=== PATIENT | female | born 1950 | race Caucasian/White ===

== ENCOUNTER → 2018-06-25 10:06 | Outpatient (CLI) | payer MEDICARE, BC, SELFPAY ==
--- NOTE | 2018-06-25 10:14 | US_ITS ---
US Arterial Ankle Brachial Ind History: Claudication leg pain ORDERING PHYSICIAN: Patrick Trinidad MD PATIENT AGE: 68 years TECHNIQUE: Segmental pressures obtained of both right and left leg. These are compared to brachial blood pressure to yield index at each level sampled including summary NOELLE. The data sheets from the procedure are available in PACS FINDINGS Rest study only performed today No prior studies available for comparison. Blood pressures reported are in millimeters mercury. RIGHT LEG NOELLE = 1.2. RIGHT LEG TBI=1.0 Brachial BP: 142 Thigh BP: 181 Calf BP: 181 Ankle PT: 177 Ankle DP : 165 Digit =139 LEFT LEG NOELLE = 1.2 LEFT LEG TBI= .9 Brachial BPD: 143 Thigh BP: 172 Calf BP: 182 Ankle PT:178 Ankle DP: 151 Digit = 129 Pulses and waveforms: Normal IMPRESSION: The ABIs as reported above are within normal limits. Waveforms and pulses are also unremarkable.
== END ==
PROVIDERS: PCP Family Medicine; Visit Provider Family Medicine
DX: R09.89 Other specified symptoms and signs involving the circulatory and respiratory systems (principal); R20.2 Paresthesia of skin
CPT/HCPCS: 93922

== ENCOUNTER → 2018-10-13 15:19 | Outpatient (CLI) | payer MEDICARE, BC, SELFPAY ==
--- NOTE | 2018-10-13 15:28 | XR_ITS ---
EXAM: XR lumbar spine min 4V HISTORY: ITS.REASON: LOW BACK PAIN,SCIATICA ORDERING PHYSICIAN: Patrick Trinidad MD PATIENT AGE: 68 years COMPARISON: None FINDINGS: Normal alignment. No fracture or dislocation. There is degenerative disc disease from T10 to S1 most severe at the L4-L5 level and in the lower thoracic spine. No acute fracture or dislocation. No lytic or blastic change. There are facet arthritic changes at L4-L5 and L5-S1. There is sclerosis of the inferior aspect of the SI joint on the left. There are osteoarthritic changes of the right hip. Left hip prosthesis is partially visualized. IMPRESSION: 1. Lumbar spondylosis with degenerative disc disease and facet arthritic change. 2. Sclerosis of left SI joint inferiorly. 3. Osteoarthritis of the right hip
== END ==
PROVIDERS: PCP Family Medicine; Visit Provider Family Medicine
DX: M54.5 Low back pain (principal); M54.30 Sciatica, unspecified side
CPT/HCPCS: 72110

== ENCOUNTER → 2019-10-30 08:31 | Outpatient (CLI) | payer MEDICARE, BC, SELFPAY ==
--- NOTE | 2019-10-30 08:35 | XR_ITS ---
PROCEDURE: XR DEXA AXIAL SKELETON CLINICAL INDICATION: POST MENOPAUSAL COMPARISON: No exams were available for comparison FINDINGS: Lumbar spine (L1 through L4), BMD 1.191, T-score 1.3 Right hip (neck), BMD 0.760, T-score -0.8. Right hip (Total), BMD 0.801, T-score -1.2. Forearm (distal 1/3), BMD 0.604, T-score -1.5. IMPRESSION: Osteopenia. Dictated by: Garry Rangel 10/30/2019 11:23 Electronically signed by Garry Rangel in [place] 10/30/2019 11:23
== END ==
PROVIDERS: PCP Family Medicine; Visit Provider Family Medicine
DX: Z13.820 Encounter for screening for osteoporosis (principal); Z78.0 Asymptomatic menopausal state
CPT/HCPCS: 77080

== ENCOUNTER → 2019-10-31 12:14 | Outpatient (CLI) | payer MEDICARE, BC, SELFPAY | PROVIDERS: Visit Provider Family Medicine | DX: R82.90 Unspecified abnormal findings in urine (principal) | CPT/HCPCS: 87086 ==

== ENCOUNTER → 2021-07-18 11:05 | Outpatient (POV) | payer MEDICARE, BC, SELFPAY | PROVIDERS: Visit Provider Dermatology | DX: Z00.00 Encounter for general adult medical examination without abnormal findings (principal) ==

== ENCOUNTER 2021-10-02 20:18 | Emergency (ER) | payer MEDICARE, BC, SELFPAY ==
[2021-10-02 20:20] VITALS: BP 190/95; PULSE 87; RESP 16; TEMP 37.2; O2SAT 97; BMI 34.7
[2021-10-02 20:43] VITALS: BP 172/98
--- NOTE | 2021-10-02 21:01 | HMH.EDALLER ---
ED Disposition Clinical Impression: Angioedema Qualifiers: Encounter type: initial encounter Qualified Code(s): T78.3XXA - Angioneurotic edema, initial encounter Disposition: Home, Self-Care Condition on Discharge: Good Instructions: DI for Angioedema Additional Instructions: call pcp for follow up Referrals: Patrick Trinidad MD [Primary Care Provider] - - Critical Care Critical Care Time: No Attestation: On 10/02/21, the high probability of a clinically significant, sudden or life threatening deterioration of the following system(s) required my full and direct attention, intervention and personal management. The time I documented below is in addition to time spent performing reported procedures but includes the following listed in this critical care notation. Medical Decision Making - Medical Records Medical records reviewed: Yes: I reviewed the patient's medical records. - Ravi Inquiry Pt receiving controlled substance: No Vital Signs: 10/02/21 20:20 10/02/21 20:43 Temperature 98.9 F Temperature Source Oral Pulse Rate [Left] 87 Respiratory Rate 16 Blood Pressure 172/98 H Blood Pressure [Right Arm] 190/95 H Blood Pressure Mean [Right Arm] 126 Blood Pressure Source Manual Cuff/ Auscultation Blood Pressure Source [Right Arm] Automatic Cuff Blood Pressure Position Sitting 02 Sat by Pulse Oximetry 97 Oxygen Delivery Method Room Air - Lab Data Lab results reviewed: Yes: I reviewed the patient's lab results. Lab Results 10/02/21 21:07: WBC 9.5, RBC 4.48, Hgb 13.8, Hct 41.7, MCV 93.1, MCH 30.8, MCHC 33.1, RDW 13.1, Plt Count 394, MPV 8.5, Neut % (Auto) 56.4, Lymph % (Auto) 33.0, [place] % (Auto) 4.6, Eos % (Auto) 5.0, Baso % (Auto) 1.0, Neut # (Auto) 5.4, Lymph # (Auto) 3.2, [place] # (Auto) 0.4, Eos # (Auto) 0.5 H, Baso # (Auto) 0.1 10/02/21 21:07: Sodium 140, Potassium 3.8, Chloride 99, Carbon Dioxide 33 H, Anion Gap 11.8, BUN 14, Creatinine 0.60, Estimated Creat Clear 77, Estimated GFR 98, Est GFR ( Amer) 119, Glucose 127 H, Calcium 10.2 10/02/21 21:07: Total Bilirubin 0.2, Direct Bilirubin 0.1, Conjugated Bilirubin 0.0, Indirect Bilirubin 0.1, Unconjugated Bilirubin 0.2, AST 46 H, ALT 33, Alkaline Phosphatase 77, Total Protein 8.0, Albumin 4.4 Result diagrams: 10/02/21 21:07 10/02/21 21:07 Orders (Tests/Meds): ED MEDICATIONS Discontinued Medications Generic Name Dose Route Start Last Admin Trade Name Jayme PRN Reason Stop Dose Admin Amlodipine Besylate 5 mg 10/02/21 21:48 Amlodipine 5mg Tablet PO 10/02/21 21:49 ONCE ONE Diphenhydramine HCl 25 mg 10/02/21 21:09 10/02/21 21:11 Diphenhydramine 50mg/Ml Vial IV 10/02/21 21:10 25 mg ONCE ONE Administration Famotidine 20 mg 10/02/21 21:09 10/02/21 21:11 Famotidine 20mg/2ml Vial IV 10/02/21 21:10 20 mg ONCE ONE Administration Methylprednisolone Sodium Succinate 125 mg 10/02/21 21:09 10/02/21 21:11 Methylprednisolone Sod Succ 125mg Vial IV 10/02/21 21:10 125 mg ONCE ONE Administration ORDERS Category Date Time Status ESR [Erythrocyte Sedimentation Rate] Stat Lab 10/02/21 21:07 Received - Physician Consults Physician Consulted: kiana Reason -: Pt condition Allergic React/Insect Bite HPI - General Chief complaint: Dental/Oral Stated complaint: tongue ,lips snd going down int throat Time Seen by Provider: 10/02/21 21:01 Mode of Arrival - ED Triage: Family Vehicle Source of Information: Patient, Medical Record Limitations: No Limitations - History of Present Illness HPI narrative: since this am has swollen feeling and tingling to tongue and upper lips - no diff breathing and no fever or other c/o- no speech or visual sx and no motor sx - MD complaint: allergic reaction Onset (ago): hour(s) Symptoms: lip swelling, tongue swelling Treatment prior to arrival: none Allergies/Adverse Reactions: Allergies Allergy/AdvReac Type Severity Reaction Status Date / Coy
[2021-10-02 21:22] LABS: Basophils # 0.1 K/mm3 (0-0.2); Eosinophils # 0.5 K/mm3 (0.0-0.4); Hematocrit 41.7 % (37.0-47.0); Hemoglobin 13.8 g/dL (12.2-16.2); Lymphocytes # 3.2 K/mm3 (0.7-4.5); Mean Corpuscular HGB Conc 33.1 g/dL (31.8-35.4); Mean Corpuscular Hemoglobin 30.8 pg (27.0-31.2); Mean Corpuscular Volume 93.1 fl (81-99); Mean Platelet Volume 8.5 fl (7.4-10.4); Monocytes # 0.4 K/mm3 (0.1-1.0); Monocytes % 4.6 % (1.7-9.3); Neutrophils # 5.4 K/mm3 (1.8-7.8); Neutrophils % 56.4 % (37.0-80.0); Platelet Count 394 K/mm3 (142-424); Red Blood Count 4.48 M/mm3 (4.20-5.40); Red Cell Distribution Width 13.1 % (11.5-17.5); White Blood Count 9.5 K/mm3 (4.8-10.8)
[2021-10-02 21:25] LABS: Chloride 99 mmol/L (98-107)
[2021-10-02 21:26] LABS: Potassium 3.8 mmoL/L (3.5-5.1); Sodium 140 mmol/L (136-145)
[2021-10-02 21:28] LABS: Alanine Aminotransferase 33 U/L (12-78); Albumin Level 4.4 g/dl (3.5-5.0); Alkaline Phosphatase 77 U/L (38-126); Aspartate Amino Transferase 46 U/L (14-36); Bilirubin,Direct 0.1 mg/dl (0.0-0.4); Bilirubin,Indirect 0.1 mg/dL (0.0-0.9); Bilirubin,Total 0.2 mg/dl (0.2-1.3); Bilirubin,Unconjugated 0.2 mg/dL (0.0-1.1)
[2021-10-02 21:29] LABS: Anion Gap 11.8 mEq/L (5-15); Blood Urea Nitrogen 14 mg/dl (7-17); Calcium 10.2 mg/dl (8.4-10.2); Carbon Dioxide 33 mmol/L (22.0-30.0); Creatinine Clearance Estimated 77 mL/min (50-200); Estimated Glomerular Filt Rate 98 ml/min (>60); GFR (African American) 119 ML/MIN (>60); Glucose 127 mg/dl (74-100)
[2021-10-02 21:55] LABS: Erythrocyte Sedimentation Rate 31 mm/hr (0-30)
[2021-10-02 22:16] VITALS: BP 163/83; PULSE 77; RESP 18; TEMP 36.7; O2SAT 98
== END 2021-10-02 22:18 | disposition home or self-care (01) ==
PROVIDERS: Emergency Provider Emergency Medicine; PCP Family Medicine
DX: T78.3XXA Angioneurotic edema, initial encounter (principal)
CPT/HCPCS: 80048; 80076; 85025; 85651; 96374; 96375; 99282

== ENCOUNTER → 2021-11-14 12:05 | Outpatient (CLI) | payer MEDICARE, BC, SELFPAY ==
[2021-11-14 13:36] LABS: Adenovirus,PCR Not Detected (NotDetected); Bordetella Pertussis Not Detected (NotDetected); Chlamydophila Pneumoniae, PCR Not Detected (NotDetected); Coronavirus 19, PCR Not Detected (NotDetected); Coronavirus 229E Not Detected (NotDetected); Coronavirus NL63 Not Detected (NotDetected); Coronavirus OC43 Not Detected (NotDetected); Coronovirus HKU1,PCR Not Detected (NotDetected); Human Metapneumovirus Not Detected (NotDetected); Influenza A, PCR Not Detected (NotDetected); Influenza AH1, 2009 Not Detected (NotDetected); Influenza AH1, PCR Not Detected (NotDetected); Influenza AH3,PCR Not Detected (NotDetected); Influenza B, PCR Not Detected (NotDetected); Mycoplasma Pneumoniae, PCR Not Detected (NotDetected); Parainfluenza 1, PCR Not Detected (NotDetected); Parainfluenza 2, PCR Not Detected (NotDetected); Parainfluenza 3, PCR Not Detected (NotDetected); Parainfluenza 4, PCR Not Detected (NotDetected); Respiratory Syncytial Virus Not Detected (NotDetected); Rhinovirus/Enterovirus Not Detected (NotDetected)
[2021-11-14 14:01] LABS: Basophils # 0.2 K/mm3 (0-0.2); Basophils % 2.4 % (0.1-2.0); Eosinophils # 0.4 K/mm3 (0.0-0.4); Eosinophils % 5.4 % (0.1-12.0); Hematocrit 43.1 % (37.0-47.0); Hemoglobin 14.1 g/dL (12.2-16.2); Lymphocytes # 2.2 K/mm3 (0.7-4.5); Lymphocytes % 26.6 % (10-50); Mean Corpuscular HGB Conc 32.7 g/dL (31.8-35.4); Mean Corpuscular Hemoglobin 30.8 pg (27.0-31.2); Mean Corpuscular Volume 94.4 fl (81-99); Mean Platelet Volume 8.5 fl (7.4-10.4); Monocytes # 0.4 K/mm3 (0.1-1.0); Monocytes % 5.2 % (1.7-9.3); Neutrophils # 4.9 K/mm3 (1.8-7.8); Neutrophils % 60.4 % (37.0-80.0); Platelet Count 397 K/mm3 (142-424); Red Blood Count 4.57 M/mm3 (4.20-5.40); Red Cell Distribution Width 13.1 % (11.5-17.5); White Blood Count 8.1 K/mm3 (4.8-10.8)
== END ==
PROVIDERS: PCP Family Medicine; Visit Provider Family Medicine
DX: Z20.822 Contact with and (suspected) exposure to COVID-19 (principal)
CPT/HCPCS: 36415; 85025; 87581; 87632; 87798; C9803; U0003; U0005

== ENCOUNTER → 2022-02-13 11:43 | Outpatient (CLI) | payer MEDICARE, BC, SELFPAY | PROVIDERS: Visit Provider Internal Medicine Gastroenterology | DX: Z01.812 Encounter for preprocedural laboratory examination (principal); Z11.52 Encounter for screening for COVID-19; Z12.11 Encounter for screening for malignant neoplasm of colon | CPT/HCPCS: C9803; U0003; U0005 ==

== ENCOUNTER 2022-02-15 09:27 | Day surgery (SDC) | payer MEDICARE, BC, SELFPAY ==
[2022-02-08 10:23] VITALS: BMI 33.9
[2022-02-15] VITALS (7 sets, daily range): BP systolic 125–150; BP diastolic 67–78; PULSE 63–85; RESP 16–18; TEMP 36.3–37.1; O2SAT 95–98
--- NOTE | 2022-02-15 10:49 | P.PN_ITS ---
[facility] Anesthesia Checklist - Patient Identification Patient Identification: Arm Band - Structural Data Admitted From: Home Planned Operative Procedure/s: colonoscopy Consent for Planned Operative Procedure(s) Verified: Yes Verified Documents: Surgical Consent, History and Physical - NPO Status Verified Time NPO: 00:00 - Additional verifications Anesthesia Reactions: No - Airway Assessment C-Spine Mobility Assessed: Yes (mp2) TMJ Mobility Assessed: Yes Dentition: Good Dentition - Neurological Assessment Level of Consciousness: Awake, Alert - Anesthesia Plan Anesthesia Risk discussed: Yes Anesthesia Plan: Verified ASA Class: II Anesthesia Type: MAC [facility] History I have reviewed the patient's past medical history: Yes Medical History: Reports:: Cancer (skin), Hyperlipidemia, Hypertension Denies:: Diabetes Mellitus Type 1, Diabetes Mellitus Type 2, Internal Pacemaker, MRSA, Seizures *Have you ever received a pneumonia vaccine?: No *Have you received a flu vaccine this season?: Yes Anesthesia experience/problems:: nac Laterality Cases: Left: Total Hip Replacement, Bilateral: Carpal Tunnel Release, Total Knee Replacement Other Surgeries: Yes: Colonoscopy, Hysterectomy-Total. No: Pacemaker Amputation: No Fractures: No - *Social History Last grade of school completed: Some college Smoking Status: Never smoker Alcohol Intake: never Substance Use Type: denies use *Occupational Status:: retired Housing: house Household Members: spouse *Travel in the last 8 weeks: None Family Hx:: No significant family history
--- NOTE | 2022-02-15 11:12 | HMH.SCOPE ---
- Procedure: Date: 02/15/22 Patient Date of :: 1950 Procedure Performed:: Colonoscopy with biopsy & snare polypectomy Indications:: History of polyps Performing Provider:: Carlos Abbott MD Referring Provider:: Patrick Trinidad MD Sedation:: Propofol Procedure:: After placing the patient in the left lateral decubitus position, the colonoscopy was gently inserted into the rectum and under direct visualization advanced to the cecum which was identified by transillumination in the right lower quadrant, identification of the ileocecal valve, appendiceal orifice, and cecal strap. Color, texture, mucosa, and anatomy of the colon were carefully examined with the scope. Findings:: Anal canal: normal Rectum: normal Sigmoid colon: Small 0.5 cm polyp removed with forceps Descending colon: normal without polyps or inflammatory changes Splenic flexure: normal Transverse colon: 1 cm polyp removed with hot snare Hepatic flexure: normal Ascending colon: normal without polyps or inflammatory changes Cecum: normal Terminal ileum: not visualized Impression: Sigmoid polyp Transverse polyp Specimens:: Polyps x 2 Recommendations:: Repeat examination recommended in THREE years or so, sooner if clinically indicated. Complications:: None Estimated blood obtained (mL): 0
== END 2022-02-15 12:15 | disposition home or self-care (01) ==
LOC: OUTP 09:28
PROVIDERS: PCP Family Medicine; Visit Provider Internal Medicine Gastroenterology
PROC: 0DJD8ZZ Inspection of Lower Intestinal Tract, Via Natural or Artificial Opening Endoscopic (ICD-10-PCS; CPT 45378; principal; 2022-02-15 10:30)
DX: Z12.11 Encounter for screening for malignant neoplasm of colon (principal); K63.5 Polyp of colon; E78.5 Hyperlipidemia, unspecified; I10 Essential (primary) hypertension; Z85.828 Personal history of other malignant neoplasm of skin; Z86.010 Personal history of colon polyps
CPT/HCPCS: 45380; 45385; 88305

== ENCOUNTER 2022-05-13 14:16 | Emergency (ER) | payer MEDICARE, BC, SELFPAY ==
[2022-05-13 14:25] VITALS: BP 141/79; PULSE 86; RESP 19; TEMP 36.8; O2SAT 97; BMI 34.9
--- NOTE | 2022-05-13 14:45 | HMH.EDUTC ---
[facility] [place] Disposition Clinical Impression: Shingles rash Qualifiers: Herpes zoster complications: without complications Qualified Code(s): B02.9 - Zoster without complications Disposition: Home, Self-Care Condition on Discharge: Good Instructions: DI for Shingles Additional Instructions: follow up with pcp if worsen or no improvement return or be seen in ed Prescriptions: Acyclovir 400 mg PO TID #5 tab Transmission Status: Pending to [facility] predniSONE [Prednisone 20mg Tab] 20 mg PO BID #10 tab Transmission Status: Pending to [facility] Referrals: Patrick Trinidad MD [Primary Care Provider] - Time of Disposition: 14:55 Medical Decision Making - Ravi Inquiry Pt receiving controlled substance: No Vital Signs: 05/13/22 14:25 Temperature 98.2 F Temperature Source Oral Pulse Rate [Right Brachial] 86 Respiratory Rate 19 Blood Pressure [Right Arm] 141/79 H Blood Pressure Mean [Right Arm] 99 Blood Pressure Source [Right Arm] Automatic Cuff Blood Pressure Position [Right Arm] Sitting 02 Sat by Pulse Oximetry 97 Oxygen Delivery Method Room Air [facility] [place] HPI - General Chief complaint: Urgent Treatment Center Stated complaint: possible shingles Time Seen by Provider: 05/13/22 14:49 Mode of Arrival: Ambulatory Source of Information: Patient Limitations: No Limitations Description of Symptoms (Recalled from Triage Doc. by RN): PATIENT C/O RASH (POSSIBLE SHINGLES) ON RIGHT BREAST SINCE YESTERDAY HEENT Symptoms (Recalled from RN notes): No Resp Symptoms (Recalled from RN notes): No Skin Symptoms (Recalled from RN notes): Yes MS Symptoms (Recalled from RN notes): No Functional Status (Recalled from RN notes): WNL - History of Present Illness Provider Complaint: 72 yr old female presnets for painful burning rash to rt breast, and flank. - Related Data Home Medications Medication Instructions Recorded Confirmed Metoprolol Succinate [Metoprolol 50 mg PO DAILY 10/02/21 02/15/22 Succinate 50mg Tablet*] hydroCHLOROthiazide [HCTZ 25mg 25 mg PO DAILY 10/02/21 02/15/22 tab] Rosuvastatin Calcium [Crestor 10mg 5 mg PO DAILY 02/08/22 02/15/22 Tablets] Ubidecarenone [Coq-10] 100 mg PO DAILY 02/08/22 02/15/22 Amlodipine Besylate [Amlodipine 10 mg PO DAILY 02/15/22 02/15/22 10mg Tab] Previous Rx's Medication Instructions Recorded Acyclovir 400 mg PO TID #5 tab 05/13/22 predniSONE [Prednisone 20mg 20 mg PO BID #10 tab 05/13/22 Tab] Allergies Allergy/AdvReac Type Severity Reaction Status Date / Time ciprofloxacin [From Cipro] Allergy Palpitation Verified 02/08/22 10:21 s ibuprofen Allergy Palpitation Verified 02/08/22 10:21 s meloxicam [From Mobic] Allergy Palpitation Verified 02/08/22 10:21 s naproxen [From Aleve] Allergy Palpitation Verified 02/08/22 10:21 s oxycodone [From Percocet] Allergy Palpitation Verified 02/08/22 10:21 s - Worker's Comp Is this a Worker's Comp case?: No [facility] History - Hepatitis A Screen Attestation statement:: This patient has been screened for Hepatitis A risk factors. I have reviewed the patient's past medical history: Yes Medical History: Reports:: Cancer (skin), Hyperlipidemia, Hypertension Denies:: Diabetes Mellitus Type 1, Diabetes Mellitus Type 2, Internal Pacemaker, MRSA, Seizures Laterality Cases: Left: Total Hip Replacement, Bilateral: Carpal Tunnel Release Other Surgeries: Yes: Colonoscopy, Hysterectomy-Total. No: Pacemaker Amputation: No Fractures: No - Social History Smoking Status: Never smoker Alcohol Intake: never Substance Use Type: denies use Occupational Status: retired Housing: house Household Members: spouse Family Hx:: No significant family history ROS Obtained: Yes Systems reviewed as appropriate & no additional complaints - Constitutional Constitutional: Reports system reviewed and no additional complaints, except as docu, Denies fever(s) - Eyes
[2022-05-13 14:55] VITALS: BP 141/79; PULSE 86; RESP 19; TEMP 36.8; O2SAT 97
== END 2022-05-13 14:59 | disposition home or self-care (01) ==
PROVIDERS: Emergency Provider Nurse Practitioner Family; PCP Family Medicine
DX: B02.9 Zoster without complications (principal)
CPT/HCPCS: 99212; G0463

== ENCOUNTER 2023-11-12 06:12 | Outpatient (CLI) | payer MEDICARE, BC, SELFPAY ==
--- NOTE | 2023-11-12 | CA_ITS ---
APPROVED REPORT Exam: Pharmacologic Technologist: Melany Edge, Ht: 5 ft 6 in Wt: 214 lbs BSA: 2.06 m2 HR: 65 bpm BP: 149/74 mmHg Rhythm: NSR Medical History Medications: Amlodipine,,,,, Metoprolol,,,,, HCTZ,,,,, Stress Test Details Test: LEXISCAN Reason for pharmacologic stress test: physical limitation. HR Resting HR: 66 bpm Max Heart Rate (APMHR): 145 bpm Max HR Achieved: 96 bpm Target HR (85% APMHR): 123 bpm % of APMHR: 66 Recovery HR: 78 bpm BP Resting BP: 149.0/74.0 mmHg Max BP: 149.0/74.0 mmHg Recovery BP: 138.0/65.0 mmHg ECG Resting ECG: SR Stress ECG: No significant ST changes Arrhythmia: None Clinical Exercise duration: 04:00 min Highest Stage Achieved: Exercise capacity: 1.0 METs Stress ECG Conclusion Symptoms: Dyspnea, headache, chest pressure Arrhythmias/Ectopy: none ST-T Changes: No significant ST changes Conclusion: EKG unremarkable due to Lexiscan infusion. Myoview images reported separately. Test Summary REST 14:56 . . 66 . 149/ 74 . . Stage 1 . . . . . . . Myoview Injected Stage 1 01:00 . . 91 . . . . Stage 2 01:00 . . 91 . 143/ 72 . . Stage 3 01:00 . . 85 . . . . Stage 4 01:00 . . 82 . 146/ 74 . Stop exercise at 04:00 RECOVERY 01:00 . . 81 . 147/ 71 . . RECOVERY 02:00 . . 78 . 147/ 71 . . RECOVERY 03:00 . . 77 . 139/ 67 . . RECOVERY 04:00 . . 78 . 139/ 67 . . RECOVERY 04:30 . . 79 . 138/ 65 . . Electronically signed by : Sarita Harrison MD 11/12/2023 11:17:55
--- NOTE | 2023-11-12 06:25 | NM_ITS ---
APPROVED REPORT Exam: Nuclear Stress Test Indication: Chest pain, SOB, Fatigue, HTN, High cholesterol, Family history Patient Location: Outpatient Stress Tech: Melany Turner [place] Tech:Cary Vann, ARRT, RT (R)(N) Ht: 5 ft 6 in Wt: 214 lbs Bra Size: 36B HR: 66 bpm BP: 149/74 mmHg BSA: 2.06 m2 TID: 1.14 BMI: 34.5 History: Chest pain, SOB, Fatigue, HTN, High cholesterol, Family history Procedure: Patient received 0.4 mg of intravenous Lexiscan, resting heart rate 66 bpm, resting blood pressure 149/74 mmHg, with Lexiscan maximum heart rate achieved was 96 bpm which is % of the maximum predicted heart rate and blood pressure was 149/74 mmHg. With Lexiscan, patient denied any complaint of chest pain. Cardiac Stress and Resting SPECT Images: Cardiac Stress and Resting SPECT images were obtained using technetium 99m Myoview 29.8 mCi stress and 10.30 mCi at rest. Resting and stress imaging in supine and prone positions demonstrate no evidence of fixed or reversible perfusion defects. Gated imaging demonstrates normal global and regional LV systolic function. LVEF is calculated at 62%. Conclusion: No evidence of fixed or reversible perfusion defects. Gated imaging demonstrates normal global and regional LV systolic function. LVEF is calculated at 62%. Electronically signed by : Sarita Harrison MD 11/12/2023 11:18:56
[2023-11-12] MEDS: SODIUM CHLORIDE 0.9% 10ML SYR (RAD ONLY) 10 ML IV ×2 (08:21)
[2023-11-12] MEDS: ISOTOPE MYOVIEW (PER STUDY) 1 DOSE IV (08:21)
--- NOTE | 2023-11-12 08:23 | US_ITS ---
FINAL REPORT CLINICAL HISTORY: AAA SCREENING COMPARISON: None FINDINGS: ULTRASOUND ABDOMINAL AORTA Findings: Sagittal and transverse images with Doppler exam was performed of the aorta. There is no evidence of abdominal aortic aneurysm. Aorta measures up to 1.9 cm. Mild plaque disease is noted. Proximal iliac vessels are normal in caliber. Aorta is patent by Doppler exam without gross stenosis. IMPRESSION: No evidence of aortic aneurysm Reviewed, Interpreted and Dictated by Jakub Bagley III, MD Transcribed by Janna Tomlinson Authenticated and . [facility]
[2023-11-12] MEDS: REGADENOSON 0.4MG/5ML SYRINGE 0.400000000000000022 MG IV (08:52)
== END 2023-11-12 23:59 ==
LOC: RAD 06:12
PROVIDERS: PCP Family Medicine; Visit Provider Family Medicine
DX: R07.89 Other chest pain (principal); Z13.6 Encounter for screening for cardiovascular disorders
CPT/HCPCS: 76705; 78452; 93017; 93018; A9502; J2785

== ENCOUNTER 2023-11-25 09:09 | Outpatient (CLI) | payer MEDICARE, BC, SELFPAY ==
--- NOTE | 2023-11-25 09:16 | XR_ITS ---
FINAL REPORT CLINICAL HISTORY: Osteoporosis screening COMPARISON: None FINDINGS: Using L1-4, the bone mineral density of the spine is 1.249 g/cm2, corresponding to T-score of 1.8, within normal limits. Using the right forearm, the bone mineral density at the one third is 0.648 g/cm2, corresponding to a T-score of -0.8, within normal limits. Using the right hip, the bone mineral density of the femoral neck is 0.732 g/cm2, corresponding to a T-score of -1.0, within normal limits. FRAX not reported because all T-scores at or above -1.0. NOTE: T-score: Standard deviation compared with peak bone mass of young adult mean. *Following the recommendations of the International Society of Bone densitometry, classification of hip BMD is based on the lower of two T-scores; total hip or femoral neck. IMPRESSION: Normal bone mineral density of the lumbar spine, right forearm, and right hip. Reviewed, Interpreted and Dictated by Aneesh Moody MD Transcribed by Thalia Molina Authenticated and [facility]
== END 2023-11-25 23:59 ==
LOC: RAD 09:11
PROVIDERS: PCP Family Medicine; Visit Provider Family Medicine
DX: Z13.820 Encounter for screening for osteoporosis (principal); Z78.0 Asymptomatic menopausal state
CPT/HCPCS: 77080

== ENCOUNTER 2024-03-07 16:44 | Emergency (ER) | payer MEDICARE, BC, SELFPAY ==
[2024-03-07 17:00] VITALS: BP 159/75; PULSE 65; RESP 22; TEMP 36.8; O2SAT 95; BMI 34.1
--- NOTE | 2024-03-07 17:13 | ED_ITS ---
Discharge Plan Disposition Patient Disposition: Home, Self-Care Condition: Good Prescriptions Prescriptions: New amoxicillin 875 mg tablet 875 mg PO Q12H Qty: 20 0RF methylprednisolone 4 mg Tablets,Dose Pack 4 mg PO DIRECTED 6 Days Qty: 21 0RF Rx Instructions: Take 1 pack as directed for 6 days No Action metoprolol succinate 50 MG tablet extended release 24 hr 50 mg PO DAILY hydrochlorothiazide 25 MG tablet 25 mg PO DAILY amlodipine 10 MG tablet 10 mg PO DAILY Referrals Follow up/Referrals: Patrick Trinidad MD [Primary Care Provider] - See instructions Activity Restrictions/Add. Instructions Additional Instructions/Restrictions: Drink plenty of fluids. Take tylenol or ibuprofen for pain or fever. Take the medications as directed. Follow up with your regular doctor. GO TO THE ER FOR ANY WORSENING SYMPTOMS Clinical Impressions Clinical Impression: Serous otitis media Instructions Patient Instructions: Middle Ear Infection, Methylprednisolone, Amoxicillin Discharge ED Provider: Nico Bass [facility] General Stated complaint: right ear pain Mode of Arrival: Ambulatory Source of Information: Patient Limitations: No Limitations Time Seen by Provider: 03/07/24 17:10 Description of Symptoms (Recalled from Triage Doc. by RN): PATIENT C/O RIGHT EAR PRESSURE THAT STARTED THIS MORNING HEENT Symptoms (Recalled from RN notes): Yes Resp Symptoms (Recalled from RN notes): No Skin Symptoms (Recalled from RN notes): No MS Symptoms (Recalled from RN notes): No Functional Status (Recalled from RN notes): WNL History of Present Illness Provider Complaint: She states that for the past 3 days she has had right ear pain and sinus congestion. Related Data Home Medications Medication Instructions Recorded Confirmed hydrochlorothiazide 25 mg tablet 25 mg PO DAILY High blood pressure 10/02/21 03/07/24 metoprolol succinate 50 mg 50 mg PO DAILY High blood pressure 10/02/21 03/07/24 tablet,extended release 24 hr amlodipine 10 mg tablet 10 mg PO DAILY High blood pressure 02/15/22 03/07/24 Previous Rx's Medication Instructions Recorded amoxicillin 875 mg tablet 875 mg PO Q12H #20 tabs 03/07/24 methylprednisolone 4 mg tablets in 4 mg PO DIRECTED 6 days #21 tabs 03/07/24 a dose pack Allergies Allergy/AdvReac Type Severity Reaction Status Date / Time ciprofloxacin [From Cipro] Allergy Palpitation Verified 02/08/22 10:21 s ibuprofen Allergy Palpitation Verified 02/08/22 10:21 s meloxicam [From Mobic] Allergy Palpitation Verified 02/08/22 10:21 s naproxen [From Aleve] Allergy Palpitation Verified 02/08/22 10:21 s oxycodone [From Percocet] Allergy Palpitation Verified 02/08/22 10:21 s Worker's Comp Is this a Worker's Comp case?: No [facility] Disclaimer: The information contained in this section may have been updated after the patient was seen, as this information can be updated by other users. Medical History (Updated 03/07/24 @ 17:41 by Nico Bass APRN) Urinary tract infection Hyperlipidemia Hypertension Surgical History (Updated 03/07/24 @ 17:12 by Destiny Chin RN) History of tonsillectomy History of hysterectomy History of cholecystectomy History of appendectomy Social History Smoking Status: Never smoker alcohol intake: never substance use type: denies use current occupational status: retired Travel in the last 8 weeks: None household members: spouse housing: house current occupational exposures/hazards: No caffeine: Yes ROS Obtained: Yes All systems reviewed & no additional complaints except as documented Constitutional Constitutional: Denies chills, Reports fever(s) and Reports poor appetite Eyes Eyes: Denies eye discharge ENT Ears, Nose, Mouth, and Throat: Denies ear discharge, Reports otalgia, Denies hearing loss, Denies sinus pain and Reports sore throat Cardiovascular Cardiovascular: Denies chest pain and Denies dyspnea Respiratory Respiratory: Denies chest congestion, Reports cough and Denies dyspnea Gastrointestinal Gastrointestingal: Denies abdominal pain, diarrhea, nausea or vomiting Musculoskeletal Musculoskeletal: Denies arthralgias Integumentary/Breasts Skin/Breast: Denies rash Physical Exam General General appearance: alert and in no apparent distress Head Head exam: atraumatic, normocephalic and normal inspection Eye Eye exam: Present normal appearance; Absent PERRL or EOMI ENT ENT exam: Present mucous membranes moist and normal external ear exam Expanded ENT Exam TM/Canal exam: Bilateral TM: erythema, bulging and effusion Nose exam: Absent sinus tenderness Nasal speculum exam: Bilateral: normal Mouth exam: Present normal external inspection and other; Absent drooling Teeth exam: Present normal inspection Throat exam: Present tonsillar erythema and tonsillomegaly Neck Neck exam: Present normal inspection, full ROM and trachea midline; Absent tenderness, meningismus or lymphadenopathy Chest Chest inspection: Present normal inspection and symmetric chest wall rise; Absent tenderness Respiratory Respiratory exam: Present normal lung sounds bilaterally; Absent respiratory distress, wheezes or stridor Cardiovascular Cardiovascular exam: Present regular rate, normal rhythm and normal heart sounds; Absent tachycardia or irregular rhythm Abdominal Exam Abdominal exam: Present soft and normal bowel sounds; Absent distention, tenderness, guarding, rebound or rigidity Extremities Exam Extremities exam: Present normal inspection and normal capillary refill; Absent tenderness, joint swelling or calf tenderness Back Exam Back exam: Present normal inspection and full ROM; Absent tenderness, CVA tenderness (R) or CVA tenderness (L) Neurological Exam Neurological exam: Present alert, oriented X3, CN II-XII intact, normal gait and reflexes normal; Absent motor sensory deficit Psychiatric Psychiatric exam: Present normal affect and normal mood Skin Skin exam: Present warm, dry, intact and normal color Lymphatic Lymphatic Findings: no adenopathy Medical Decision Making Medical Records Medical records reviewed: No I reviewed the patient's medical records. Ravi Inquiry Pt receiving controlled substance: No Vital Signs: 03/07/24 17:00 Temperature 98.2 F Temperature Source Oral Pulse Rate [Left Brachial] 65 Respiratory Rate 22 Blood Pressure [Left Arm] 159/75 H Blood Pressure Mean [Left Arm] 103 Blood Pressure Source [Left Arm] Automatic Cuff Blood Pressure Position [Left Arm] Sitting 02 Sat by Pulse Oximetry 95 Oxygen Delivery Method Room Air
[2024-03-07 17:32] VITALS: BP 159/75; PULSE 65; RESP 22; TEMP 36.8; O2SAT 95
== END 2024-03-07 17:44 | disposition home or self-care (01) ==
PROVIDERS: Emergency Provider Nurse Practitioner Family; PCP Family Medicine
DX: H65.01 Acute serous otitis media, right ear (principal); R09.81 Nasal congestion
CPT/HCPCS: 99212; 99214; G0463

== ENCOUNTER 2024-06-26 14:12 | Emergency (ER) | payer MEDICARE, BC, SELFPAY ==
[2024-06-26 16:20] VITALS: BP 167/93; PULSE 79; RESP 18; TEMP 36.9; O2SAT 97; BMI 32.3
--- NOTE | 2024-06-26 16:24 | EXP.UTC ---
Discharge Plan Disposition Patient Disposition: Home, Self-Care Condition: Good Prescriptions Prescriptions: New phenazopyridine [Pyridium] 200 mg tablet 200 mg PO Q8H 2 Days Qty: 6 0RF ondansetron 4 mg Tablet,Disintegrating 4 mg PO Q8H PRN (Reason: Nausea) Qty: 12 0RF nitrofurantoin monohyd/m-cryst [Macrobid] 100 mg Capsule 100 mg PO BID Qty: 10 0RF Rx Instructions: must administer with a meal/food No Action metoprolol succinate 50 MG tablet extended release 24 hr 50 mg PO DAILY hydrochlorothiazide 25 MG tablet 25 mg PO DAILY amoxicillin 875 mg tablet 875 mg PO Q12H Qty: 20 0RF methylprednisolone 4 mg Tablets,Dose Pack 4 mg PO DIRECTED 6 Days Qty: 21 0RF Rx Instructions: Take 1 pack as directed for 6 days amlodipine 10 MG tablet 10 mg PO DAILY Referrals Follow up/Referrals: Patrick Trinidad MD [Primary Care Provider] - See instructions Activity Restrictions/Add. Instructions Additional Instructions/Restrictions: Drink plenty of fluids. Take tylenol for pain or fever. Take the medications as directed. Take the zofran (ondesetron) if you have nausea/vomiting. Follow up with your regular doctor. GO TO THE ER FOR ANY WORSENING SYMPTOMS The pyridium will make your urine turn orange, this is an expected side effect. It will stain your clothes if it comes into contact with them. We will culture the urine. That will tell what bacteria is causing your infection and which antibiotics will treat it best. Sometimes the first antibiotic we prescribe turns out to not work against different bacteria. So, make sure you follow up within 3 days if you are not getting better. Clinical Impressions Clinical Impression: Acute UTI Instructions Patient Instructions: Urinary Tract Infection, DI for Urinary Tract Infection (UTI), Phenazopyridine, Nitrofurantoin Print Language Print Language: Mongolian Discharge ED Provider: Nico Bass [facility] General Stated complaint: blood in urine Time Seen by Provider: 06/26/24 16:24 Related Data Home Medications ?Medication ?Instructions ?Recorded ?Confirmed hydrochlorothiazide 25 mg tablet 25 mg PO DAILY High blood pressure 10/02/21 03/07/24 metoprolol succinate 50 mg 50 mg PO DAILY High blood pressure 10/02/21 03/07/24 tablet,extended release 24 hr amlodipine 10 mg tablet 10 mg PO DAILY High blood pressure 02/15/22 03/07/24 Previous Rx's ?Medication ?Instructions ?Recorded amoxicillin 875 mg tablet 875 mg PO Q12H #20 tabs 03/07/24 methylprednisolone 4 mg tablets in 4 mg PO DIRECTED 6 days #21 tabs 03/07/24 a dose pack nitrofurantoin 100 mg PO BID #10 caps 06/26/24 monohydrate/macrocrystals 100 mg capsule (Macrobid) ondansetron 4 mg disintegrating 4 mg PO Q8H PRN Nausea #12 tabs 06/26/24 tablet phenazopyridine 200 mg tablet 200 mg PO Q8H 2 days #6 tabs 06/26/24 (Pyridium) Allergies Allergy/AdvReac Type Severity Reaction Status Date / Time ciprofloxacin [From Cipro] Allergy Palpitation Verified 02/08/22 10:21 s ibuprofen Allergy Palpitation Verified 02/08/22 10:21 s meloxicam [From Mobic] Allergy Palpitation Verified 02/08/22 10:21 s naproxen [From Aleve] Allergy Palpitation Verified 02/08/22 10:21 s oxycodone [From Percocet] Allergy Palpitation Verified 02/08/22 10:21 s PFSH PFSH Disclaimer: The information contained in this section may have been updated after the patient was seen, as this information can be updated by other users. Medical History (Updated 06/26/24 @ 16:31 by Nico Bass APRN) Urinary tract infection Hyperlipidemia Hypertension Surgical History (Updated 03/07/24 @ 17:12 by Destiny Chin RN) History of tonsillectomy History of hysterectomy History of cholecystectomy History of appendectomy Social History Smoking Status: Never smoker alcohol intake: never substance use type: denies use cu
[2024-06-26 16:37] LABS: Apearance,Urine Cloudy (Clear); Color,Urine Amber (Yellow)
[2024-06-26 16:38] LABS: Bilirubin,Urine Negative (Negative); Blood, Urine 3+ (Negative); Glucose,Urine (UA) Negative (Negative); Ketones,Urine Negative (Negative); Protein,Urine 2+ (Negative); UTC Leukocyte Esterase,Urine 3+ (Negative); UTC Nitrate,Urine Positive (Negative); Urobilinogen,Urine 0.2 EU/dl (0.2)
[2024-06-26 16:45] VITALS: BP 167/93; PULSE 79; RESP 16; TEMP 36.9; O2SAT 97
== END 2024-06-26 16:45 | disposition home or self-care (01) ==
PROVIDERS: Emergency Provider Nurse Practitioner Family; PCP Family Medicine
DX: N39.0 Urinary tract infection, site not specified (principal); B96.29 Other Escherichia coli [E. coli] as the cause of diseases classified elsewhere
CPT/HCPCS: 81003; 87086; 87088; 87186; 99212; 99214; G0463

== ENCOUNTER 2025-04-02 11:00 | Outpatient (CLI) | payer MEDICARE, BC, SELFPAY ==
--- NOTE | 2025-04-02 11:03 | CT_ITS ---
FINAL REPORT TECHNIQUE: Axial images through the abdomen and pelvis were performed without contrast. This study was performed with techniques to keep radiation doses as low as reasonably achievable, (ALARA). Individualized dose reduction techniques using automated exposure control or adjustment of mA and/or kV according to the patient's size were employed. CLINICAL HISTORY: CHRONIC UTI COMPARISON: None FINDINGS: CT ABDOMEN PELVIS WITHOUT CONTRAST: Abdomen: The lung bases are clear. The liver parenchyma is homogeneous. The gallbladder is absent. The spleen, pancreas, and adrenals are unremarkable. There is an exophytic cyst in the lateral aspect of the left kidney, measuring 2.0 cm in size. There are staghorn calculi present in the superior pole of the right kidney, measuring up to 3.8 cm in size, and nonobstructing. Pelvis: The urinary bladder is unremarkable. There is streak artifact from a left hip prosthesis. There is moderate degenerative disc disease present at the L3-4, L4-5, and L5-S1 levels. The appendix is not visualized. There is no pelvic mass or inflammation. IMPRESSION: Staghorn calculi are present in the superior pole of the right kidney, nonobstructing, measuring up to 3.8 cm in size. No left renal calcifications are identified. Reviewed, Interpreted and Dictated by Aneesh Moody MD Transcribed by Janna Tomlinson Authenticated and [facility]
== END 2025-04-02 23:59 | disposition home or self-care (01) ==
LOC: RAD 11:01
PROVIDERS: PCP Family Medicine; Visit Provider Family Medicine
DX: N20.0 Calculus of kidney (principal); N39.0 Urinary tract infection, site not specified
CPT/HCPCS: 74176